=== PATIENT | female | born 1960 | race African-American/Black ===

== ENCOUNTER 2018-05-14 21:53 | Emergency (ER) | payer OTHER ==
[2015-08-04 21:15] VITALS: BP 157/97
[~2018-05-14] VITALS: Ht 172.7 cm; Wt 147.4 kg
[2018-05-15] MEDS ORDERED: IV NORMAL SALINE 1000ML BAG 1,000 ML IV ONE
[2018-05-15 00:05] LABS: BASO # 0.1 x10^3/uL (0.0-0.2); BASO % 1 % (0-3); EOS # 0.2 x10^3/uL (0.0-0.7); EOS % 3 % (0-3); HEMATOCRIT 45.7 % (36.0-47.0); HEMOGLOBIN 15.6 g/dL (12.0-15.5); LYMPH # 1.7 x10^3/uL (1.0-4.8); LYMPH % 23 % (24-48); MEAN CORPUSCULAR HEMOGLOBIN 31 pg (25-35); MEAN CORPUSCULAR HGB CONC 34 g/dL (31-37); MEAN CORPUSCULAR VOLUME 91 fL (79-100); MONO # 0.6 x10^3/uL (0.0-1.1); MONO % 8 % (0-9); NEUT # 4.7 x10^3uL (1.8-7.7); NEUT % 64 % (31-73); PLATELET COUNT 268 x10^3/uL (140-400); RED BLOOD COUNT 5.04 x10^6/uL (3.50-5.40); RED CELL DISTRIBUTION WIDTH 13.5 % (11.5-14.5); WHITE BLOOD COUNT 7.3 x10^3/uL (4.0-11.0)
[2018-05-15 00:06] LABS: BILIRUBIN,URINE NEGATIVE (NEG); CLARITY,URINE CLOUDY; COLOR,URINE YELLOW; NITRITE,URINE NEGATIVE (NEG); PROTEIN,URINE NEGATIVE (NEG-TRACE); UROBILINOGEN,URINE 0.2 mg/dL (0.2 mg/dL)
[2018-05-15 00:14] LABS: CALCIUM 9.8 mg/dL (8.5-10.1); CREATININE 0.7 mg/dL (0.6-1.0); POTASSIUM 3.5 mmol/L (3.5-5.1)
[2018-05-15 00:15] LABS: BACTERIA,URINE MANY /HPF (0-FEW); PROTHROMBIN TIME PATIENT 12.7 SEC (11.7-14.0); RBC,URINE OCC /HPF (0-2); SQUAMOUS EPITHELIAL CELL,UR MANY /LPF; WBC,URINE 20-40 /HPF (0-4)
[2018-05-15 00:19] LABS: ALBUMIN 3.9 g/dL (3.4-5.0); ALBUMIN/GLOBULIN RATIO 0.8 (1.0-1.7); TOTAL BILIRUBIN 0.1 mg/dL (0.2-1.0); TOTAL PROTEIN 8.6 g/dL (6.4-8.2)
[2018-05-15] MEDS ORDERED: CONTRAST GIVEN. MC PRN (00:30)
[2018-05-15 00:58] LABS: FECAL OB PT POSITIVE (NEG)
[2018-05-15] MEDS ORDERED: IOHEXOL 300 MG/ML 100ML VIAL. IV ONE (01:00)
--- NOTE | 2018-05-15 01:34 | RAD ---
CT scan of the abdomen and pelvis with contrast 05/15/2018 CLINICAL HISTORY: Left lower quadrant abdominal pain. Rectal bleeding. TECHNIQUE: After the intravenous administration of 75 cc of Omnipaque 300, contiguous, 5 mm axial sections were obtained through the abdomen and pelvis. One or more of the following individualized dose reduction techniques were utilized for this study: 1. Automated exposure control. 2. Adjustment of the mA and/or kV according to patient size. 3. Use of iterative reconstruction technique. Findings: Images through the lung bases demonstrate mild cardiomegaly. Minimal dependent subsegmental atelectasis is seen bilaterally. The liver is mildly enlarged measuring 20 cm in length. Decreased attenuation of the liver parenchyma is seen consistent with mild fatty degeneration. The spleen, pancreas and adrenal glands are within normal limits. Low-attenuation lesions are seen involving both kidneys which likely represent cysts. These measure 5 mm to 2.7 cm in size. Several nonobstructing calculi are seen involving the lower pole of the right kidney. These measure 3 to 4 mm in size. The gallbladder is well-distended. The abdominal aorta tapers normally. A lap band device is noted in place. No free fluid or free air is seen within the abdomen. There is no evidence of bowel obstruction. The appendix is well-visualized and is within normal limits. Multiple diverticula are seen scattered throughout the colon. No inflammatory changes are seen in the adjacent fat. Images through the pelvis demonstrate the urinary bladder distended with urine. The uterus is not visualized consistent with a hysterectomy. A 5.8 cm oval-shaped low-attenuation structure seen in the left adnexa which likely represents a left ovarian cyst. No free fluid is seen. Minimal S-shaped curvature of the thoracolumbar spine is seen. IMPRESSION: 1. Colonic diverticulosis. 2. 5.6 cm probable left ovarian cyst. Electronically signed by: Raji Benavides MD (05/15/2018 1:30 AM) [facility]
[2018-05-15] MEDS ORDERED: HYDR25SU18 RC (01:49)
[2018-05-15] MEDS ORDERED: SENN-121 PO (01:49)
--- NOTE | 2018-05-15 01:50 | PHYS DOC ---
Past Medical History Past Medical History: Diabetes-Type II, High Cholesterol, Hypertension Past Surgical History: Other Additional Past Surgical Histo: partial hysterectomy, LAP BAND AND LAP BAND REMOVAL Alcohol Use: None Drug Use: None Adult General Chief Complaint Chief Complaint: BLOODY STOOL HPI HPI Patient is a 57 year old [f__sex] who presents with [] Review of Systems Review of Systems Constitutional: Denies fever or chills [] Eyes: Denies change in visual acuity, redness, or eye pain [] HENT: Denies nasal congestion or sore throat [] Respiratory: Denies cough or shortness of breath [] Cardiovascular: No additional information not addressed in HPI [] GI: Denies abdominal pain, nausea, vomiting, bloody stools or diarrhea [] : Denies dysuria or hematuria [] Musculoskeletal: Denies back pain or joint pain [] Integument: Denies rash or skin lesions [] Neurologic: Denies headache, focal weakness or sensory changes [] Endocrine: Denies polyuria or polydipsia [] All other systems were reviewed and found to be within normal limits, except as documented in this note. Current Medications Current Medications Current Medications Medications (Trade) Dose Ordered Sig/Tk Start Time Stop Time Status Last Admin Dose Admin Info (CONTRAST GIVEN -- Rx MONITORING) 1 each PRN DAILY PRN 05/15/18 00:30 05/17/18 00:29 Iohexol (Omnipaque 300 Mg/ml) 75 ml 1X ONCE 05/15/18 01:00 05/15/18 01:01 DC 05/15/18 01:03 75 ML Sodium Chloride 1,000 ml @ 1,000 mls/hr 1X ONCE 05/15/18 00:00 05/15/18 00:59 DC 05/15/18 00:13 1,000 MLS/HR Allergies Allergies Allergies Coded Allergies Type Severity Reaction Last Updated Verified No Known Drug Allergies 08/04/15 No Physical Exam Physical Exam Constitutional: Well developed, well nourished, no acute distress, non-toxic appearance. [] HENT: Normocephalic, atraumatic, bilateral external ears normal, oropharynx moist, no oral exudates, nose normal. [] Eyes: PERRLA, EOMI, conjunctiva normal, no discharge. [] Neck: Normal range of motion, no tenderness, supple, no stridor. [] Cardiovascular:Heart rate regular rhythm, no murmur [] Lungs & Thorax: Bilateral breath sounds clear to auscultation [] Abdomen: Bowel sounds normal, soft, no tenderness, no masses, no pulsatile masses. [] Skin: Warm, dry, no erythema, no rash. [] Back: No tenderness, no CVA tenderness. [] Extremities: No tenderness, no cyanosis, no clubbing, ROM intact, no edema. [] Neurologic: Alert and oriented X 3, normal motor function, normal sensory function, no focal deficits noted. [] Psychologic: Affect normal, judgement normal, mood normal. [] Current Patient Data Lab Values Laboratory Tests Test 05/14/18 23:57 05/15/18 00:12 05/15/18 00:47 White Blood Count 7.3 x10^3/uL (4.0-11.0) Red Blood Count 5.04 x10^6/uL (3.50-5.40) Hemoglobin 15.6 g/dL (12.0-15.5) H Hematocrit 45.7 % (36.0-47.0) Mean Corpuscular Volume 91 fL (79-100) Mean Corpuscular Hemoglobin 31 pg (25-35) Mean Corpuscular Hemoglobin Concent 34 g/dL (31-37) Red Cell Distribution Width 13.5 % (11.5-14.5) Platelet Count 268 x10^3/uL (140-400) Neutrophils (%) (Auto) 64 % (31-73) Lymphocytes (%) (Auto) 23 % (24-48) L Monocytes (%) (Auto) 8 % (0-9) Eosinophils (%) (Auto) 3 % (0-3) Basophils (%) (Auto) 1 % (0-3) Neutrophils # (Auto) 4.7 x10^3uL (1.8-7.7) Lymphocytes # (Auto) 1.7 x10^3/uL (1.0-4.8) Monocytes # (Auto) 0.6 x10^3/uL (0.0-1.1) Eosinophils # (Auto) 0.2 x10^3/uL (0.0-0.7) Basophils # (Auto) 0.1 x10^3/uL (0.0-0.2) Prothrombin Time 12.7 SEC (11.7-14.0) Prothrombin Time INR 1.0 (0.8-1.1) PTT 28 SEC (24-38) Urine Collection Type Unknown Urine Color Yellow Urine Clarity Cloudy Urine pH 6.0 Urine Specific [place] 1.020 Urine Protein Negative mg/dL (NEG-TRACE) Urine Glucose (UA) Negative mg/dL (NEG) Urine Ketones (Stick) Negative mg/dL (NEG) Urine Blood Trace (NEG) Urine Nitrite Negative (NEG) Urine Bilirubin Negative (NEG) Urine Urobilinogen Dipstick 0.2 mg/dL (0.2 mg/dL) Urine Leukocyte Esterase Large (NEG) Urine RBC Occ /HPF (0-2) Urine WBC 20-40 /HPF (0-4) Urine Squamous Epithelial Cells Many /LPF Urine Bacteria Many /HPF (0-FEW) Urine Mucus Marked /LPF Sodium Level 142 mmol/L (136-145) Potassium Level 3.5 mmol/L (3.5-5.1) Chloride Level 100 mmol/L (98-107) Carbon Dioxide Level 34 mmol/L (21-32) H Anion Gap 8 (6-14) Blood Urea Nitrogen 12 mg/dL (7-20) Creatinine 0.7 mg/dL (0.6-1.0) Estimated GFR (Cockcroft-Gault) 104.0 BUN/Creatinine Ratio 17 (6-20) Glucose Level 167 mg/dL (70-99) H Calcium Level 9.8 mg/dL (8.5-10.1) Total Bilirubin 0.1 mg/dL (0.2-1.0) L Aspartate Amino Transferase (AST) 13 U/L (15-37) L Alanine Aminotransferase (ALT) 23 U/L (14-59) Alkaline Phosphatase 64 U/L (46-116) Total Protein 8.6 g/dL (6.4-8.2) H Albumin 3.9 g/dL (3.4-5.0) Albumin/Globulin Ratio 0.8 (1.0-1.7) L Lipase 153 U/L (73-393) Lactic Acid Level 1.3 mmol/L (0.4-2.0) Stool Occult Blood Positive (NEG) Laboratory Tests 05/14/18 23:57 Laboratory Tests 05/14/18 23:57 EKG EKG [] Radiology/Procedures Radiology/Procedures PROCEDURE: CT ABD PELV W/ IV CONTRST ONLY CT scan of the abdomen and pelvis with contrast 05/15/2018 CLINICAL HISTORY: Left lower quadrant abdominal pain. Rectal bleeding. TECHNIQUE: After the intravenous administration of 75 cc of Omnipaque 300, contiguous, 5 mm axial sections were obtained through the abdomen and pelvis. One or more of the following individualized dose reduction techniques were utilized for this study: 1. Automated exposure control. 2. Adjustment of the mA and/or kV according to patient size. 3. Use of iterative reconstruction technique. Findings: Images through the lung bases demonstrate mild cardiomegaly. Minimal dependent subsegmental atelectasis is seen bilaterally. The liver is mildly enlarged measuring 20 cm in length. Decreased attenuation of the liver parenchyma is seen consistent with mild fatty degeneration. The spleen, pancreas and adrenal glands are within normal limits. Low-attenuation lesions are seen involving both kidneys which likely represent cysts. These measure 5 mm to 2.7 cm in size. Several nonobstructing calculi are seen involving the lower pole of the right kidney. These measure 3 to 4 mm in size. The gallbladder is well-distended. The abdominal aorta tapers normally. A lap band device is noted in place. No free fluid or free air is seen within the abdomen. There is no evidence of bowel obstruction. The appendix is well-visualized and is within normal limits. Multiple diverticula are seen scattered throughout the colon. No inflammatory changes are seen in the adjacent fat. Images through the pelvis demonstrate the urinary bladder distended with urine. The uterus is not visualized consistent with a hysterectomy. A 5.8 cm oval-shaped low-attenuation structure seen in the left adnexa which likely represents a left ovarian cyst. No free fluid is seen. Minimal S-shaped curvature of the thoracolumbar spine is seen. IMPRESSION: 1. Colonic diverticulosis. 2. 5.6 cm probable left ovarian cyst. Electronically signed by: Raji Benavides MD (05/15/2018 1:30 AM) [facility] Course & Med Decision Making Course & Med Decision Making Pertinent Labs and Imaging studies reviewed. (See chart for details) [] Dragon Disclaimer Dragon Disclaimer This electronic medical record was generated, in whole or in part, using a voice recognition dictation system. Departure Departure Impression: Primary Impression: Hematochezia Additional Impressions: Ovarian cyst Hemorrhoids Disposition: HOME, SELF-CARE Condition: STABLE Referrals: UNKNOWN PCP NAME (PCP) Patient Instructions: Hemorrhoids, [id number], Ovarian Cyst, [id number], Rectal Bleeding, [id number] Scripts Hydrocortisone Acetate (ANUSOL-HC) 25 Mg Supp.rect 1 SUPP RC BID, #14 SUPP Prov: ILAN HERNANDEZ DO 05/15/18 Sennosides/Docusate Sodium (Colace 2-in-1 Tablet) 1 Each Tablet 1 EACH PO BID, #30 TAB Prov: ILAN HERNANDEZ DO 05/15/18 Problem Qualifiers Additional Impressions: Ovarian cyst Laterality: left Qualified Codes: N83.202 - Unspecified ovarian cyst, left side Hemorrhoids Hemorrhoid type: unspecified Qualified Codes: K64.9 - Unspecified hemorrhoids ILAN HERNANDEZ DO May 15, 2018 01:50
[2018-05-15] MEDS ORDERED: IOHEXOL 300 MG/ML 100ML VIAL. ONE (06:04)
== END 2018-05-15 02:20 | disposition home or self-care (01) ==
LOC: ER 21:53
DX: K92.1 Melena (principal); N83.202 Unspecified ovarian cyst, left side; K64.9 Unspecified hemorrhoids; K57.30 Diverticulosis of large intestine without perforation or abscess without bleeding; E11.9 Type 2 diabetes mellitus without complications; E78.00 Pure hypercholesterolemia, unspecified; I10 Essential (primary) hypertension; Z90.710 Acquired absence of both cervix and uterus
CPT/HCPCS: 36415; 74177; 80053; 81001; 82274; 83605; 83690; 85025; 85610; 85730; 87086; 99284; J7030; Q9967

== ENCOUNTER → 2021-05-26 | Outpatient (CLI) | payer OTHER ==
[2015-08-04 21:15] VITALS: BP 157/97
[~2021-05-26] MED LIST: HYDR25SU18 RC; SENN-121 PO
--- NOTE | 2021-05-26 14:11 | RAD ---
EXAM: AP and lateral views right knee DATE: 05/26/2021 10:34 AM INDICATION: Reason: PAIN / Spl. Instructions: / History: COMPARISON: No Prior FINDINGS: No acute fracture or dislocation. No joint effusion. Small medial compartment joint space narrowing with tricompartmental osteophytes. IMPRESSION: 1. No acute fracture or dislocation. 2. Small medial compartment joint space narrowing with tricompartmental osteophytes. Electronically signed by: Marciano Hernandez MD (05/26/2021 2:09 PM) [facility]
--- NOTE | 2021-05-26 16:46 | RAD ---
EXAM: XR LUMBAR SPINE 2-3V 05/26/2021 10:34 AM CLINICAL INDICATION: Pain COMPARISON: None TECHNIQUE: 3 views of the lumbar spine FINDINGS: A lap band is noted. There 5 nonrib-bearing lumbar vertebral bodies. No acute fracture. Al ignment is normal. Disc spaces are maintained. There is facet arthrosis at L4-L5 and L5-S1. IMPRESSION: Facet arthrosis at L4-L5 and L5-S1. Electronically signed by: Milena Bro MD (05/26/2021 4:44 PM) [id number]
== END ==
LOC: RAD 10:21
PROVIDERS: ATTEND Family Medicine
DX: M47.817 Spondylosis without myelopathy or radiculopathy, lumbosacral region (principal); M25.461 Effusion, right knee; M25.861 Other specified joint disorders, right knee
CPT/HCPCS: 72100; 73560